=== PATIENT | female | born 1950 | race Caucasian/White ===

== ENCOUNTER → 2017-09-09 | Outpatient (CLI) | payer MEDICARE, BC ==
[~2017-09-09] MED LIST: ASPI81CH PO; ATEN25 PO; ATOR10 PO; Aspir 8181 MG PO; Atenolol50 MG PO; CALCIUM PO; CETI5 PO; CHOL10002 PO; ENOX40I SC; KEFLEX250 MG PO; LEVSOD150 PO; LEVSOD50 PO; MICROZIDE12.5 M1 PO; MULVITMIND PO; OXYACE5T PO; TRIHYD253A; Triamterene W/1 EACH; VITAMIN B122500 MCG PO; Vitamin C100 M1 PO; [UNRECOGNIZED DRUG - MIXTURE] PO
[2017-09-09 11:02] LABS: Source, Urine Clean Catch
[2017-09-09 13:47] LABS: Bilirubin, Urine Neg (Neg); Blood, Urine Neg (Neg); Glucose Qualitative, Urine Neg (Neg); Ketones, Urine Neg (Neg); Leukocyte Esterase, Urine Neg (Neg); Nitrite, Urine Neg (Neg); Protein, Urine Neg (Neg); Urobilinogen, Urine NORM (Normal); pH, Urine 6.5 (5.0-8.0)
[2017-09-09 14:13] LABS: Appearance, Urine Clear (Clear); Color, Urine Yellow (P-Yellow)
== END | disposition home or self-care (01) ==
LOC: LAB 10:52 → LAB SHORT 10:52
PROVIDERS: Nurse Practitioner Family
DX: N39.0 Urinary tract infection, site not specified (principal)
CPT/HCPCS: 81003

== ENCOUNTER → 2018-12-24 | Outpatient (CLI) | payer MEDICARE, BC | LOC: LAB 13:46 → LAB SHORT 13:46 | DX: R30.0 Dysuria (principal) | CPT/HCPCS: 87077; 87086; 87186 ==

== ENCOUNTER → 2019-01-04 | Outpatient (CLI) | payer MEDICARE, BC | END | disposition home or self-care (01) | LOC: LAB 15:40 → LAB SHORT 15:40 | DX: R10.9 Unspecified abdominal pain (principal) | CPT/HCPCS: 87086 ==

== ENCOUNTER → 2019-01-13 | Outpatient (CLI) | payer MEDICARE, BC ==
[2019-01-13 11:06] LABS: Appearance, Urine Clear (Clear); Bilirubin, Urine Neg (Neg); Blood, Urine Neg (Neg); Color, Urine Yellow (P-Yellow); Glucose Qualitative, Urine Neg (Neg); Ketones, Urine Neg (Neg); Leukocyte Esterase, Urine Neg (Neg); Nitrite, Urine Neg (Neg); Protein, Urine Neg (Neg); Specific Gravity, Urine 1.015 (1.003-1.022); Urobilinogen, Urine NORM (Normal)
== END | disposition home or self-care (01) ==
LOC: LAB SHORT 07:30 → LAB 07:30
PROVIDERS: Physician Assistant
DX: R10.9 Unspecified abdominal pain (principal)
CPT/HCPCS: 81003

== ENCOUNTER → 2019-06-12 | Outpatient (CLI) | payer MEDICARE, BC | LOC: LAB 12:45 → LAB SHORT 12:45 | DX: R30.0 Dysuria (principal) | CPT/HCPCS: 87077; 87086; 87186 ==

== ENCOUNTER → 2019-06-28 | Outpatient (CLI) | payer MEDICARE, BC | LOC: LAB 10:06 → LAB SHORT 10:06 | DX: N39.0 Urinary tract infection, site not specified (principal) | CPT/HCPCS: 87077; 87086; 87186 ==

== ENCOUNTER 2020-03-06 07:22 | Day surgery (SDC) | payer MEDICARE, BC ==
[~2020-03-06] VITALS: Ht 170.2 cm; Wt 115.3 kg
[~2020-03-06 07:22] MED LIST changes: +ATOR20 PO; +EUTHYROX125 MCG PO; +METO25ER PO; +POTA10T PO
[2020-03-06] MEDS ORDERED: Keflex250 MG PO (07:58)
--- NOTE | 2020-03-06 08:42 | NUR ---
03/06/20 0842 Pari Hoyt History, Chart, Medications and Allergies reviewed before start of procedure. PATIENT CONFIRMS NPO STATUS AND AGREES WITH SCHEDULED PROCEDURE.MONITOR INTACT WITH CONTINUOUS PULSE OXIMETRY AND INTERMITTENT BP. O2 VIA N/C INTACT THROUGHOUT SEDATION/PROCEDURE. 3-LEAD EKG REVIEWED WITH PHYSICIAN PRIOR TO START OF PROCEDURE. PATIENT DETERMINED TO BE ASA APPROPRIATE FOR PROPOFOL SEDATION PRIOR TO START OF PROCEDURE BY DR. CORONA.
== END 2020-03-06 22:55 | disposition home or self-care (01) ==
LOC: ORSCMMR 07:22 → ORD 08:30 → ORSCMMR 08:30
PROVIDERS: Internal Medicine Gastroenterology
PROC: 0DJD8ZZ Inspection of Lower Intestinal Tract, Via Natural or Artificial Opening Endoscopic (ICD-10-PCS; principal; 2020-03-06 08:30)
DX: Z12.11 Encounter for screening for malignant neoplasm of colon (principal); Z86.010 Personal history of colon polyps; Z80.0 Family history of malignant neoplasm of digestive organs; K57.30 Diverticulosis of large intestine without perforation or abscess without bleeding; E03.9 Hypothyroidism, unspecified; I10 Essential (primary) hypertension; E78.00 Pure hypercholesterolemia, unspecified; G47.30 Sleep apnea, unspecified; E66.9 Obesity, unspecified; Z68.39 Body mass index [BMI] 39.0-39.9, adult; Z79.899 Other long term (current) drug therapy
CPT/HCPCS: J2250; J3010; J7120

== ENCOUNTER → 2023-05-14 | Outpatient (CLI) | payer BC, MEDICARE ==
[~2023-05-14] MED LIST changes: +ALBU90OI; +ALLEGRA ALLERG180 MG; +Apple Cider Vi300 MG; +CAL-CITRATE PL1 EAC2; +FLAX; +Keflex250 MG PO; +MULTI-VITAMIN1 EAC2
[2023-05-14 10:50] LABS: Source, Urine Clean Catch
[2023-05-14 12:55] LABS: Appearance, Urine Turbid (Clear); Bilirubin, Urine Neg (Neg); Blood, Urine 5+ (Neg); Color, Urine Amber (P-Yellow); Glucose Qualitative, Urine Neg (Neg); Ketones, Urine Neg (Neg); Leukocyte Esterase, Urine 3+ (Neg); Nitrite, Urine Pos (Neg); Protein, Urine 3+ (Neg); Urobilinogen, Urine NORM (Normal)
[2023-05-14 13:07] LABS: White Blood Cells, Urine TNTC /hpf (0-5)
[2023-05-14 13:08] LABS: Bacteria Many /hpf; Red Blood Cells, Urine 50-100 /hpf (0-2); Squamous Epithelial Cells Few /hpf (Few)
== END | disposition home or self-care (01) ==
LOC: LAB 10:25 → LAB SHORT 10:25
PROVIDERS: Physician Assistant
DX: Z09 Encounter for follow-up examination after completed treatment for conditions other than malignant neoplasm (principal); Z87.440 Personal history of urinary (tract) infections
CPT/HCPCS: 81001; 87077; 87086; 87186

== ENCOUNTER 2023-11-26 13:39 | Day surgery (SDC) | payer MEDICARE, BC ==
[~2023-11-26] VITALS: Ht 172.7 cm; Wt 118.7 kg
[~2023-11-26 13:39] MED LIST changes: +Atropine Sulfate 0.1 MG/ML 10ML SYR ONE; +Glycopyrrolate 0.2 MG/ML 1MLVIAL ONE; +Lactated Ringer's 1,000 ML IV ONE; +Lidocaine 2% 5 ML SDV ONE; +Lidocaine HCl/Pf 1% 5 ML VIAL ONE; +Methylene Blue 1% 100 MG/10 ML VIAL ONE; +Ondansetron HCl 2 MG / ML 2ML Vial ONE; +ePHEDrine Sulfate 50 MG/ML 1ML Injection ONE
[2023-11-26] MEDS ORDERED: Lactated Ringer's 1,000 ML IV ONE (14:06)
[2023-11-26] MEDS ORDERED: METHAMPHETAMINE (14:10)
[2023-11-26] MEDS ORDERED: OMEP20ER (14:11)
[2023-11-26] MEDS ORDERED: propofoL 50 ML IV ONE (14:47)
[2023-11-26 15:48] VITALS: BP 116/64
== END 2023-11-26 15:40 | disposition home or self-care (01) ==
LOC: ORSCSDS 13:39
PROVIDERS: Specialist
PROC: 0DB58ZX Excision of Esophagus, Via Natural or Artificial Opening Endoscopic, Diagnostic (ICD-10-PCS; principal; 2023-11-26 15:00)
PROC: 0DB68ZX Excision of Stomach, Via Natural or Artificial Opening Endoscopic, Diagnostic (ICD-10-PCS; principal; 2023-11-26 15:00)
DX: R13.10 Dysphagia, unspecified (principal); I10 Essential (primary) hypertension; K21.9 Gastro-esophageal reflux disease without esophagitis; E03.9 Hypothyroidism, unspecified; J45.909 Unspecified asthma, uncomplicated; K44.9 Diaphragmatic hernia without obstruction or gangrene; K57.30 Diverticulosis of large intestine without perforation or abscess without bleeding; Z79.899 Other long term (current) drug therapy
CPT/HCPCS: 88305; 88342; J0461; J2001; J2405; J2704; J7120; Q9968